=== PATIENT | female | born 1955 | race Caucasian/White ===

== ENCOUNTER 2019-06-25 09:07 | Outpatient (CLI) | payer OTHER ==
--- NOTE | 2019-06-25 10:07 | CT ---
CT Abdomen Pelvis W WO con: 06/25/2019 12:00 AM CLINICAL HISTORY: Dysuria and microscopic hematuria. TECHNIQUE: Multiple contiguous axial images were obtained and a CT of the abdomen and pelvis without and with IV contrast. Postcontrast images were obtained in the nephrographic and excretory phases. Sagittal and coronal reformats were performed. COMPARISON: None. FINDINGS: Kidneys and Urinary Tract: Right kidney and ureter: No calculi. No hydronephrosis or hydroureter. 3.5 cm right renal cyst. No ur othelial lesions: no filling defect, dilation, stricture or wall thickening. Left kidney and ureter: No calculi. No hydronephrosis or hydroureter. No renal mass or other lesions. No urothelial lesions: no filling defect, dilation, stricture or wall thickening. Urinary bladder: Normal, no calculi, mass or other lesions. Remainder of Abdomen and Pelvis: Liver: Normal. Gallbladder and biliary system: Normal. No CT evident gallstones. No biliary ductal dilatation. Spleen: Normal. Pancreas: Normal. Adrenal glands: Normal. GI tract: Normal. Abdominal aorta and its major branches: Atherosclerotic calcifications. No aneurysm. Peritoneum/retroperitoneum: Normal. No ascites. No adenopathy. Pelvic structures: Normal. No pelvic lymphadenopathy. Body wall and musculoskeletal: Degenerative changes in the spine. Visualized lower thorax: Normal. No pulmonary parenchymal mass or pleural effusion. IMPRESSION: Right renal cyst
== END 2019-06-25 09:08 | disposition home or self-care (01) ==
LOC: SCSCT 09:07
PROVIDERS: ATTEND Urology
DX: N28.1 Cyst of kidney, acquired (principal); R31.29 Other microscopic hematuria
CPT/HCPCS: 74178; 82565

== ENCOUNTER 2021-03-23 16:56 | Outpatient (CLI) | payer OTHER ==
[2021-03-24 00:09] LABS: SARS-CoV-2 PCR by NAA Not Detected (NotDetected)
== END 2021-03-23 16:57 | disposition home or self-care (01) ==
LOC: LABBT 16:56
PROVIDERS: ATTEND Internal Medicine Gastroenterology
DX: Z01.812 Encounter for preprocedural laboratory examination (principal); K63.5 Polyp of colon; Z20.822 Contact with and (suspected) exposure to COVID-19
CPT/HCPCS: U0003; U0005

== ENCOUNTER 2021-03-26 06:54 | Day surgery (SDC) | payer OTHER ==
[2021-03-25 12:44] VITALS: BMI 32.3
[2021-03-26] MEDS ORDERED: PROPOFOL 200 MG/20 ML VIAL ONE (08:48)
[2021-03-26] MEDS ORDERED: Lidocaine 1% PF 5 ML VIAL ONE (08:48)
== END 2021-03-26 10:08 | disposition home or self-care (01) ==
LOC: SDC 06:54
PROVIDERS: ATTEND Internal Medicine Gastroenterology
PROC: 0DJD8ZZ Inspection of Lower Intestinal Tract, Via Natural or Artificial Opening Endoscopic (ICD-10-PCS; principal; 2021-03-26)
DX: Z12.11 Encounter for screening for malignant neoplasm of colon (principal); K57.30 Diverticulosis of large intestine without perforation or abscess without bleeding; E78.5 Hyperlipidemia, unspecified; E11.9 Type 2 diabetes mellitus without complications; I10 Essential (primary) hypertension; Z87.891 Personal history of nicotine dependence; Z86.010 Personal history of colon polyps; Z79.84 Long term (current) use of oral hypoglycemic drugs; Z79.899 Other long term (current) drug therapy
CPT/HCPCS: 93005; 93010; J2704